=== PATIENT | male | born 1980 | race Hispanic/Latino ===

== ENCOUNTER 2020-05-20 14:34 | Emergency (ER) | payer MEDICARE ==
[~2020-05-20] VITALS: Ht 182.9 cm; Wt 249.3 kg
[2020-05-20] MEDS ORDERED: PROAIR HFA INH8.5 GM PO (16:46)
[2020-05-20] MEDS ORDERED: IVERMECTIN3 MG PO (16:46)
[2020-05-20] MEDS ORDERED: ALBUTEROL2.5 MG/3 M NEB (16:46)
[2020-05-20] MEDS ORDERED: AZITHROMYCIN500 MG PO (16:46)
[2020-05-20] MEDS ORDERED: PREDNISONE20 MG PO (16:46)
[2020-05-20] MEDS ORDERED: BROMFED DM COU118 ML PO (16:46)
[2020-05-20] MEDS ORDERED: BAMLANIVIMAB 700 MG in SODIUM CHLORIDE 0.9% 250ML 250 ML IV ONE (18:30)
[2020-05-20] MEDS ORDERED: ACETAMINOPHEN 325 MG TAB PO ONE (18:45)
[2020-05-20] MEDS ORDERED: ACETAMINOPHEN 325 MG TAB ONE (18:48)
[2020-05-20 20:38] VITALS: BP 151/79
== END 2020-05-20 20:38 | disposition home or self-care (01) ==
LOC: FSED 14:45
DX: U07.1 COVID-19 (principal); J20.9 Acute bronchitis, unspecified
CPT/HCPCS: 71046; 99284; J7050

== ENCOUNTER 2020-07-26 23:25 | Emergency (ER) | payer MEDICARE ==
[~2020-07-26] VITALS: Ht 182.9 cm; Wt 249.0 kg
[~2020-07-26 23:25] MED LIST: ALBUTEROL2.5 MG/3 M NEB; AZITHROMYCIN500 MG PO; BROMFED DM COU118 ML PO; IVERMECTIN3 MG PO; PREDNISONE20 MG PO; PROAIR HFA INH8.5 GM PO
[2020-07-27] MEDS ORDERED: HYDROCODONE/APAP 5MG-325MG TAB PO ONE (00:45)
[2020-07-27] MEDS ORDERED: HYDROCODONE/APAP 5MG-325MG TAB ONE (00:56)
[2020-07-27] MEDS ORDERED: TYLENOL # 31 EA PO (01:57)
== END 2020-07-27 02:45 | disposition home or self-care (01) ==
LOC: FSED 23:30
DX: S93.401A Sprain of unspecified ligament of right ankle, initial encounter (principal); X50.1XXA Overexertion from prolonged static or awkward postures, initial encounter; Y93.01 Activity, walking, marching and hiking; D68.2 Hereditary deficiency of other clotting factors; I10 Essential (primary) hypertension; E66.01 Morbid (severe) obesity due to excess calories
CPT/HCPCS: 99283

== ENCOUNTER 2021-07-15 11:52 | Emergency (ER) | payer MEDICARE ==
[~2021-07-15] VITALS: Ht 182.9 cm; Wt 176.5 kg
[~2021-07-15 11:52] MED LIST changes: +TYLENOL # 31 EA PO
[2021-07-15] MEDS ORDERED: TRAZODONE HCL150 MG (12:27)
[2021-07-15] MEDS ORDERED: ELIQUIS5 MG PO (12:27)
[2021-07-15] MEDS ORDERED: VENTOLIN HFA18 GM INH (12:56)
[2021-07-15] MEDS ORDERED: TAMIFLU75 MG PO (12:56)
[2021-07-15] MEDS ORDERED: ALBUTEROL2.5 MG/3 M INH (12:58)
[2021-07-15] MEDS ORDERED: PREDNISONE20 MG PO (13:00)
== END 2021-07-15 13:07 | disposition home or self-care (01) ==
LOC: FSED 12:20
DX: R50.9 Fever, unspecified (principal); J09.X2 Influenza due to identified novel influenza A virus with other respiratory manifestations; J98.01 Acute bronchospasm; D68.9 Coagulation defect, unspecified; H69.90 Unspecified Eustachian tube disorder, unspecified ear; E66.01 Morbid (severe) obesity due to excess calories
CPT/HCPCS: 81003; 87400; 99283